=== PATIENT | male | born 1995 | race Caucasian/White ===

== ENCOUNTER 2020-12-17 20:34 | Emergency (ER) | payer BC, SELFPAY ==
--- NOTE | 2020-12-18 02:56 | ER ---
Nurse's Notes [facility] Name: Brendan Mckinnon Age: 25 yrs Sex: Male : 1995 Arrival Date: 12/17/2020 Time: 20:49 Bed External Waiting Private MD: Diagnosis: Presentation: 12/17 20:50 Chief complaint: Patient states: Chest pain started 20 mins BODY STYLIST. HX of HPN. Coronavirus ca1 screen: Client denies travel out of the [place] in the last 14 days. At this time, the client does not indicate any symptoms associated with coronavirus-19. Ebola Screen: Patient negative for fever greater than or equal to 101.5 degrees Fahrenheit, and additional compatible Ebola Virus Disease symptoms Patient denies exposure to infectious person. Patient denies travel to an Ebola-affected area in the 21 days before illness onset. No symptoms or risks identified at this time. Initial Sepsis Screen: Does the patient meet any 2 criteria? No. Patient's initial sepsis screen is negative. Does the patient have a suspected source of infection? No. Patient's initial sepsis screen is negative. Risk Assessment: Do you want to hurt yourself or someone else? Patient reports no desire to harm self or others. Onset of symptoms was December 17, 2020. 20:50 Method Of Arrival: Ambulatory ca1 20:50 Acuity: IMMANUEL 3 ca1 Historical: - Allergies: 20:52 No Known Allergies; ca1 - Home Meds: 20:52 lisinopril-hydrochlorothiazide oral oral [Active]; ca1 - PMHx: 20:52 Hypertension; ca1 - PSHx: 20:52 Hernia repair; Tonsillectomy; Adenoids; ca1 - Immunization history:: Flu vaccine is not up to date. - Social history:: Smoking status: Patient reports the use of cigarette tobacco products, denies chronic smoking, but will smoke occasionally. Vital Signs: 20:50 BP 161 / 102; Pulse 95; Resp 16 S; Temp 97.2(TE); Pulse Ox 98% on R/A; Weight 158.76 kg ca1 (R); Height 6 ft. 1 in. (185.42 cm) (R); Pain 3/10; 20:52 BP 156 / 87; ca1 20:50 Body Mass Index 46.18 (158.76 kg, 185.42 cm) ca1 ED Course: 20:49 Patient arrived in ED. ca1 20:51 Triage completed. ca1 20:52 Arm band placed on. EKG completed in triage. Results shown to . gina Administered Medications: No medications were administered Outcome: 12/18 02:56 Patient left the ED. sg Signatures: Shaun Cardenas RN RN sg Genia Neil RN RN ca1
[2020-12-18 05:15] VITALS: BP 156/87
[2020-12-18 05:16] VITALS: TEMP 97.2; O2SAT 98
--- NOTE | 2020-12-19 04:35 | EKG ---
Test Date: 2020-12-17 Test Time: 19:48:03 Scouring Machine Tender: DEIRDRE MEASUREMENT RESULTS: Intervals: Rate: 104 NE: 152 QRSD: 98 QT: 324 QTc: 426 [place]: P: 45 NE: 152 QRS: 118 T: 20 INTERPRETIVE STATEMENTS: Sinus tachycardia Right axis deviation Possible Right ventricular hypertrophy Abnormal ECG No previous ECG available for comparison Electronically Signed On 12-19-20 04:32:32 CDT by Keegan Shelton
== END 2020-12-18 02:56 | disposition left against medical advice (07) ==
LOC: ER 20:34
DX: Z53.21 Procedure and treatment not carried out due to patient leaving prior to being seen by health care provider (principal)
CPT/HCPCS: 93005; 99281

== ENCOUNTER 2024-07-27 13:43 | Emergency (ER) | payer OTHER ==
--- OUTSIDE RECORDS SUMMARY | 2024-07-27 13:46 | XMS REPORT | Continuity of Care Document ---
Author Name Unknown Address [address] [facility] [address] [place] [address] [facility] thconnect Address [address] [facility] [place] [address] Care Team Providers Care Field Operations Farm Manager Name Role Phone Mc Castillo Brown Primary Care Physician [phone] BHUPENDRA AVILA Attending Clinician UnaBALBIR Gallego Attending Clinician Unavailable ROSARIO LEWIS Attending Clinician Lauro Strickland Attending Clinician Rishi Chaidez DO Attending Clinician Payers Payer Name Policy Type Policy Number Effective Date Expirati on Date Source AEELMER GARAY S [employer] 94 ON 9 [id number] 2023 00:00:00 Problems Condition Name Condition Details Condition Category Status Onset Date Resolution Date Last Treatment Date Treating Clinician Comments Source Well adult exam Well adult exam Disease Active 01-04 00:00: 00 Jamila Chen - Liana noble Class 3 severe obesity due to excess calories without serious comorbidit y with body mass index (BMI) of 45.0 to 49.9 in adult Class 3 severe obesity due to excess calories without serious comorbidit y with body mass index (BMI) of 45.0 to 49.9 in adult Disease Active 01-04 00:00: 00 Jamila noble Primary hypertensi on Primary hypertensi on Disease Active 01-04 00:00: 00 Jamila noble Family history of diabetes mellitus Family history of diabetes mellitus Disease Active 01-04 00:00: 00 Jamila noble Hearing loss of right ear Hearing loss of right ear Disease Active 01-04 00:00: 00 Jamila noble Social History Social Habit Start Date Stop Date Quantity Comments Source Sexual orientation Joanie renato Chen - External Tobacco use and exposure 2024-01-05 00:00:00 2024-01-05 00:00:00 Smokeless tobacco non-user Jamila Chen - External Alcohol intake 2024-01-05 00:00:00 2024-01-05 00:00:00 Current drinker of alcohol (finding) Jamila Chen - External History of Social function 2024-01-05 00:00:00 2024-01-05 00:00:00 Jamila Chen - External Alcohol Comment 2024-01-05 00:00:00 2024-01-05 00:00:00 occasional 1-2 alcohol once monthly Jamila Chen - External Sex Assigned At 1995 00:00:00 1995 00[birth year]:00 Jamila Chen - External Smoking Status Start Date Stop Date Source Unknown if ever smoked [facility] Never smoked tobacco Jamila Chen - External Medications Ordered Medication Name Filled Medication Name Start Date Stop Date Current Medication? Ordering Clinician Indication Dosage Frequency Signature (SIG) Comments Components Source LISINOPRIL- HCTZ 20-25 MG oral Tablet 01-04 15:00: 21 Yes 1{tbl} Take 1 tablet by mouth daily. Jamila noble lisinopril- hydrochloro thiazide 20-25 mg per tablet 07-04 11:40: 48 Yes 1{tbl} Take 1 tablet by mouth daily. [facility] naproxen sodium 550 mg tablet 07-04 00:00: 00 Yes [id number] 550mg Take 1 tablet by mouth 2 (two) times daily with meals. [facility] methocarbam ol 750 mg tablet 07-04 00:00: 00 Yes [id number] 750mg Take 1 tablet by mouth 4 (four) times daily. [facility] acetaminoph en-codeine (TYLENOL-CO DEINE #3) 300-30 mg tablet 07-04 00:00: 00 Yes [id number] 1{tbl} Take 1 tablet by mouth every 4 (four) hours as needed for Pain (scale 7-10) (ALTERNATE WITH NAPROXEN). [facility] Vital Signs Vital Name Observation Time Observation Value Comments S priticharlie Systolic blood pressure 2024-01-05 19:59:00 130 mm[Hg] Jamila Seybo ld - External Diastolic blood pressure 2024-01-05 19:59:00 78 mm[Hg] Jamila Elderybo ld - External Heart rate 2024-01-05 19:59:00 80 /min Kel y Seybold - External Body temperature 2024-01-05 19:59:00 36.67 Katina Jamila Seybold - External Respiratory rate 2024-01-05 19:59:00 18 /min Jaimla Elderybold - External Body height 2024-01-05 19:59:00 185.4 cm Amara rogers Seybold - External Body weight 2024-01-05 19:59:00 170.552 kg Amara ey Seybold - External BMI 2024-01-05 19:59:00 49.61 kg/m2 Amara ey Seybold - External Oxygen saturation in Arterial blood by Pulse oximetry 2024-01-05 19:59:00 97 /min Jamila Meyer ld - External Procedures Procedure Date / Time Performed Performing Clinicia n Source SARS-COV-2 COVID-19 VACCINE,0.3ML,IM (PFIZER) 2021-05-31 18:25:09 Doctor Unassigned, [facility] Encounters Start Date/Time End Date/Time Encounter Type Admission Type Attending Clinicians Care Facility Care Department Encounter ID Source 2024-07-06 11:33:00 2024-07-06 14:44:00 Emergency E BHUPENDRA AVILA [facility] [id number] [facility] 2024-05-12 00:00:00 2024-05-12 00:00:00 Outpatient BALBIR CISNEROS JAMILA URBAN [id number] Jamila [facility] 2024-04-04 15:30:00 2024-04-04 15:30:00 Outpatient BALBIR CISNEROS JAMILA URBAN [id number] [facility] 2024-03-14 00:00:00 2024-03-14 00:00:00 Outpatient ROSARIO LEWIS JAMILA URBAN [id number] [facility] 2024-01-05 15:00:00 2024-01-05 15:00:00 Outpatient JOSHUA ROSARIO URBAN [id number] [facility] 2021-05-31 13:03:19 2021-05-31 13:13:19 Imm/Inj Visit Lauro Lay Carlos Adrian [facility] [id number] [facility] Notes Date/Time Note Provider Source 2024-01-05 15:04:35 Chief Complaint Patient presents with Physical Patient is not fasting for labs. Right ear hearing loss Camila Lagunas LVN T [facility]
[2024-07-27] MEDS ORDERED: dexAMETHasone 10 MG/ML VIAL ONE (14:21)
[2024-07-27] MEDS ORDERED: HYDROCODONE/APAP 5/325 MG TAB ONE (14:21)
[2024-07-27] MEDS ORDERED: KETOROLAC 30 MG/ML INJ ONE (14:21)
[2024-07-27] MEDS ORDERED: DIAZEPAM 5 MG TABLET ONE (14:22)
--- NOTE | 2024-07-27 14:50 | RAD REPORT ---
EXAMINATION: Stone Protocol CLINICAL INDICATION: Abdominal pain. Flank and back pain TECHNIQUE: CT abdomen and pelvis was performed, without IV contrast, as per department protocol. Oral contrast not given. Axial, sagittal and coronal reconstructions were obtained. One or more of the following dose reduction techniques were used: Automated exposure control, adjustment of the mA and k V according to the patient size, and iterative reconstruction. Unless otherwise specified, incidental findings do not require dedicated imaging follow-up. COMPARISON: No prior exam. FINDINGS: The lack of intravenous and oral contrast limits the sensitivity of this exam for evaluation of solid visceral organs, vascular structures, and bowel A renal calculus not seen. No ureteral calculus. A bladder calculus not noted. No hydronephrosis Liver, spleen, pancreas and adrenals grossly normal No evidence of diverticulitis. Normal appendix. Vertebral fracture not seen. Small umbilical hernia IMPRESSION: Negative for a genitourinary calculus
--- NOTE | 2024-07-27 16:24 | ER ---
Nurse's Notes [facility] Name: Brendan Mckinnon Age: 29 yrs Sex: Male : 1995 Arrival Date: 07/27/2024 Time: 13:43 Bed 19 Private MD: Diagnosis: Lumbago with sciatica, left side Presentation: 07/27 14:16 Chief complaint: Patient states: Low back pain onset 2 weeks ago. PT states that today cm10 he fell down the steps of his camper and made the pain worse. Pt states that the pain radiates down left leg. Coronavirus screen: Client denies travel out of the [place] in the last 14 days. Ebola Screen: Patient denies travel to an Ebola-affected area in the 21 days before illness onset. No symptoms or risks identified at this time. Initial Sepsis Screen: Does the patient meet any 2 criteria? No. Patient's initial sepsis screen is negative. Does the patient have a suspected source of infection? No. Patient's initial sepsis screen is negative. Risk Assessment: Do you want to hurt yourself or someone else? Patient reports no desire to harm self or others. Onset of symptoms was July 27, 2024. 14:16 Method Of Arrival: Wheelchair cm10 14:16 Acuity: IMMANUEL 3 cm10 Triage Assessment: 14:17 General: Appears in no apparent distress. uncomfortable, Behavior is calm, cooperative. cm10 Pain: Complains of pain in low back area Pain radiates to left leg Pain currently is 6 out of 10 on a pain scale. Neuro: No deficits noted. Level of Consciousness is awake, alert, obeys commands, Oriented to person, place, time, situation, Appropriate for age. Respiratory: No deficits noted. Airway is patent Respiratory effort is even, unlabored, Respiratory pattern is regular, symmetrical. Historical: - Allergies: 14:17 No Known Allergies; cm10 - Home Meds: 14:17 lisinopril-hydrochlorothiazide 10-12.5 mg oral tablet [Active]; cm10 - PMHx: 14:17 Hypertension; cm10 - Immunization history:: Adult Immunizations up to date. - Infectious Disease History:: Denies. - Social history:: Smoking status: Patient denies any tobacco usage or history of. Screenin:53 [facility] ED Fall Risk Assessment (Adult) History of falling in the last 3 months, iw including since admission No falls in past 3 months (0 pts) Confusion or Disorientation No (0 pts) Intoxicated or Sedated No (0 pts) Impaired Gait Yes (1 pt) Mobility Assist Device Used No (0 pt) Altered Elimination No (0 pt) Score/Fall Risk Level 0 - 2 = Low Risk Oriented to surroundings. Abuse screen: Denies injuries from another. Nutritional screening: No deficits noted. Tuberculosis screening: No symptoms or risk factors identified. Assessment: 16:53 Reassessment: Patient appears in no apparent distress at this time. Patient and/or iw family updated on plan of care and expected duration. Pain level reassessed. Patient is alert, oriented x 3, equal unlabored respirations, skin warm/dry/pink. Patient states feeling better. Patient states symptoms have improved. Vital Signs: 14:16 BP 143 / 104; Pulse 76; Resp 16; Temp 98.6; Pulse Ox 100% on R/A; Weight 154.22 kg; cm10 Height 6 ft. 1 in. ; Pain 7/10; 16:54 BP 138 / 89; Pulse 79; Resp 16; Pulse Ox 98% on R/A; iw 14:16 Body Mass Index 44.86 (154.22 kg, 185.42 cm) cm10 14:16 Pain Scale: Adult cm10 ED Course: 13:45 Patient arrived in ED. im 13:56 Nadira Russell FNP-C is PHCP. kb 13:56 Jean Marie Paulino MD is Attending Physician. kb 14:17 Triage completed. cm10 14:18 Arm band placed on right wrist. Patient placed in waiting room. cm10 14:34 CT Stone Protocol In Process Unspecified. EDMS 15:57 Jazmyne Guerrero, RN is Primary Nurse. db 16:54 Patient has correct armband on for positive identification. Provided Education on: d/c iw instructions . 16:54 No provider procedures requiring assistance completed. Patient did not have IV access iw during this emergency room visit. Administered Medications: 14:26 Drug: HYDROcodone-acetaminophen PO 5 mg-325 mg 1 tabs PO once Route: PO; cm10 14:26 Drug: Ketorolac IM 30 mg IM once Route: IM; Site: left vastus lateralis; cm10 14:26 Drug: Dexamethasone IM 10 mg IM once Route: IM; Site: right vastus lateralis; cm10 14:27 Drug: Diazepam PO 5 mg PO once Route: PO; cm10 Medication: 16:53 VIS not applicable for this client. iw Outcome: 16:24 Discharge ordered by . danielle 16:54 Discharged to home ambulatory, with family, iw 16:54 Condition: good 16:54 Discharge instructions given to patient, family, Instructed on discharge instructions, follow up and referral plans. medication usage, Demonstrated understanding of instructions, follow-up care, medications, Prescriptions given X 2, 16:55 Patient left the ED. iw Signatures: Dispatcher [employer] EDOK Nadira Russell, FLAME CHANNELER-C FLAME CHANNELER-Justyna Tom RN RN iw Jazmyne Guerrero RN RN db Mendoza, Itzel im Martinez, Clarissa, RN RN cm10
--- NOTE | 2024-07-27 16:25 | EDPHYS ---
Physician Documentation [facility] Name: Brendan Mckinnon Age: 29 yrs Sex: Male : 1995 Arrival Date: 07/27/2024 Time: 13:43 Bed 19 Private MD: ED Physician Jean Marie Paulino HPI: 07/27 15:18 This 29 yrs old Male presents to ER via Wheelchair with complaints of Low Back Pain, kb Leg Pain - left. 15:18 Pt is a 29 year old male who presents for left low back pain that started 2 weeks ago. kb States he was seen at an ER in [place] at onset of symptoms and given steroids and muscle relaxers. States the pain was getting much better, but he fell down the steps of his RV today and now the pain is worse. Denies bowel/bladder issues, numbness, tingling. Pain is to left lower back and radiates down left leg. . Historical: - Allergies: 14:17 No Known Allergies; cm10 - Home Meds: 14:17 lisinopril-hydrochlorothiazide 10-12.5 mg oral tablet [Active]; cm10 - PMHx: 14:17 Hypertension; cm10 - Immunization history:: Adult Immunizations up to date. - Infectious Disease History:: Denies. - Social history:: Smoking status: Patient denies any tobacco usage or history of. ROS: 15:16 Constitutional: As per HPI kb Exam: 15:16 Constitutional: This is a well developed, well nourished patient who is awake, alert, kb and in no acute distress. Head/Face: Normocephalic, atraumatic. ENT: Moist Mucous membranes Cardiovascular: Regular rate Respiratory: Respirations even and unlabored. No increased work of breathing. Talking in full sentences Abdomen/GI: Soft, non-tender. No distention Skin: Warm, dry with normal turgor. Normal color. MS/ Extremity: Pulses equal, no cyanosis. Neurovascular intact. Full, normal range of motion. Neuro: Awake and alert, GCS 15, oriented to person, place, time, and situation. 15:16 Back: pain, that is moderate, of the lumbar area, left low back and left mid back, ROM is painful, Vital Signs: 14:16 BP 143 / 104; Pulse 76; Resp 16; Temp 98.6; Pulse Ox 100% on R/A; Weight 154.22 kg; cm10 Height 6 ft. 1 in. ; Pain 7/10; 16:54 BP 138 / 89; Pulse 79; Resp 16; Pulse Ox 98% on R/A; iw 14:16 Body Mass Index 44.86 (154.22 kg, 185.42 cm) cm10 14:16 Pain Scale: Adult cm10 MDM: 13:57 Medical Screening Exam initiated kb 15:17 Differential diagnosis: strain, fracture, sciatica, Herniated disc kidney stone. Data kb reviewed: vital signs, nurses notes. Test considered but Not performed: Labs: urinalysis considered but pt has no urinary symptoms. Counseling: I had a detailed discussion with the patient and/or guardian regarding the historical points, exam findings, and any diagnostic results supporting the discharge/admit diagnosis, radiology results, the need for outpatient follow up, a family practitioner, to return to the emergency department if symptoms worsen or persist or if there are any questions or concerns that arise at home. 07/27 14:15 Order name: CT Stone Protocol; Complete Time: 14:55 cm10 Administered Medications: 14:26 Drug: HYDROcodone-acetaminophen PO 5 mg-325 mg 1 tabs PO once Route: PO; cm10 14:26 Drug: Ketorolac IM 30 mg IM once Route: IM; Site: left vastus lateralis; cm10 14:26 Drug: Dexamethasone IM 10 mg IM once Route: IM; Site: right vastus lateralis; cm10 14:27 Drug: Diazepam PO 5 mg PO once Route: PO; cm10 Disposition Summary: 07/27/24 16:24 Discharge Ordered Notes: Location: Home kb Condition: Stable kb Diagnosis - Lumbago with sciatica, left side kb Followup: kb - With: Emergency Department - When: As needed - Reason: Worsening of condition Followup: kb - With: Private Physician - When: 2 - 3 days - Reason: Recheck today's complaints, Continuance of care, Re-evaluation by your physician Discharge Instructions: - Discharge Summary Sheet kb - Sciatica, [id number] kb Forms: - Medication Reconciliation Form kb - Antibiotic Education kb - Prescription Opioid Use kb - Patient Portal Instructions kb - Leadership Thank You Letter kb - Work release form db Prescriptions: - Prednisone 20 mg Oral Tablet - take 1 tablet ORAL route once daily for 5 days; 5 tablet; Refills: 0, Product kb Selection Permitted - Diclofenac Sodium 75 mg Oral Tablet Sustained Release - take 1 tablet ORAL route 2 times per day; 30 tablet; Refills: 0, Product kb Selection Permitted Addendum: 07/30/2024 22:50 Co-signature as Attending Physician, Jean Marie PETER I reviewed the patient's care r n provided by the Advanced Practice Provider and agree with the diagnosis and treatment plan. Signatures: Dispatcher [employer] Nadira Diaz, DAY LIGHT RELIEF OPERATOR-C DAY LIGHT RELIEF OPERATOR-CkJean Marie Nava MD MD rn VinayakDena RN RN 10
[2024-07-27 23:08] VITALS: TEMP 98.6
[2024-07-27 23:09] VITALS: BP 138/89; O2SAT 98
== END 2024-07-27 16:55 | disposition home or self-care (01) ==
LOC: ER 13:43
DX: M54.42 Lumbago with sciatica, left side (principal)
CPT/HCPCS: 76377; 74176; 96372; 99284; J1100